=== PATIENT | male | born 1995 | race Caucasian/White ===

== ENCOUNTER 2019-08-03 22:19 | Emergency (ER) | payer BC ==
[~2019-08-03] VITALS: Ht 167.6 cm; Wt 70.3 kg
[2019-08-03] MEDS ORDERED: IV NORMAL SALINE 1000 ML BAG IV ONE (23:30)
[2019-08-03 23:51] LABS: BASOPHILS % (AUTO) 0.6 % (0.0-2.0); EOSINOPHILS # (AUTO) 0.1 K/uL (0.0-0.7); EOSINOPHILS % (AUTO) 1.4 % (0.0-7.0); HEMATOCRIT 46.2 % (36.7-47.1); HEMOGLOBIN 15.4 g/dL (12.5-16.3); LYMPHOCYTES # (AUTO) 1.3 K/uL (20.0-40.0); LYMPHOCYTES % (AUTO) 18.7 % (20.5-51.5); MEAN CORPUSCULAR HEMOGLOBIN 29.8 uug (23.8-33.4); MEAN CORPUSCULAR HGB CONC 33 g/dL (32.5-36.3); MEAN CORPUSCULAR VOLUME 89.2 fL (73.0-96.2); MONOCYTES # (AUTO) 0.8 K/uL (2.0-10.0); MONOCYTES % (AUTO) 11.5 % (0.0-11.0); NEUTROPHILS # (AUTO) 4.9 K/uL (1.8-8.9); NEUTROPHILS % (AUTO) 67.8 % (38.5-71.5); PLATELET COUNT (AUTO) 276 K/uL (152-348); POTASSIUM 3.8 mmol/L (3.5-5.1); RED BLOOD CELL COUNT(AUTO) 5.18 MIL/uL (4.06-5.63); WHITE BLOOD COUNT (AUTO) 7.2 K/uL (3.6-10.2)
[2019-08-03 23:57] LABS: BILIRUBIN,DIRECT 0.1 mg/dL (0.0-0.2); BILIRUBIN,TOTAL 0.3 mg/dL (0.2-1.0); TOTAL PROTEIN, SERUM 8.8 g/dL (6.4-8.2)
[2019-08-04] MEDS ORDERED: SWABABLE VALVE TRANSFER SET EA MC ONE (00:44)
[2019-08-04] MEDS ORDERED: IV NORMAL SALINE 250 ML IV ONE (00:45)
[2019-08-04] MEDS ORDERED: IOHEXOL 350 100 ML INFUS..BTL ONE (00:45)
[2019-08-04 04:03] VITALS: BP 110/63
== END 2019-08-04 04:03 | disposition home or self-care (01) ==
LOC: ER 22:19
DX: R55 Syncope and collapse (principal); R11.0 Nausea
CPT/HCPCS: 36415; 70496; 70498; 80048; 80076; 84484; 85025; 85730; 93005; 96360; 99284; Q9967; 70030-TC; A4663; J7030; J7050